=== PATIENT | female | born 1985 | race Caucasian/White ===

== ENCOUNTER 2024-11-01 18:13 | Emergency (ER) | payer OTHER ==
[~2024-11-01] VITALS: Ht 162.6 cm; Wt 61.2 kg
[2024-11-01 20:05] VITALS: BP 123/81; TEMP 98.3; O2SAT 98
== END 2024-11-01 20:05 | disposition left against medical advice (07) ==
LOC: ER 18:20
DX: R45.1 Restlessness and agitation (principal); F41.9 Anxiety disorder, unspecified; F19.10 Other psychoactive substance abuse, uncomplicated; Z65.3 Problems related to other legal circumstances